=== PATIENT | male | born 1990 | race Caucasian/White ===

== ENCOUNTER 2018-06-10 21:21 | Emergency (ER) | payer SELFPAY ==
[~2018-06-10] VITALS: Ht 182.9 cm; Wt 63.6 kg
[2018-06-10 21:27] VITALS: BP 157/90; TEMP 98.8
[2018-06-10 23:44] VITALS: PULSE 82
== END 2018-06-10 23:44 | disposition home or self-care (01) ==
LOC: COL.ER 21:21
DX: J10.1 Influenza due to other identified influenza virus with other respiratory manifestations (principal)